=== PATIENT | male | born 1980 | race Hispanic/Latino ===

== ENCOUNTER 2020-04-28 05:28 | Emergency (ER) | payer OTHER ==
[2020-04-28] MEDS ORDERED: DiphenhydrAMINE HCL 50 MG/ML VIAL ONE (05:58)
[2020-04-28] MEDS ORDERED: METOCLOPRAMIDE 10 MG/2 ML VIAL ONE (05:58)
[2020-04-28] MEDS ORDERED: ONDANSETRON HCL 4 MG/2 ML VIAL ONE (05:58)
[2020-04-28 06:04] LABS: BASOPHILS % (AUTO) 0.4 % (0.0-5.0); EOSINOPHILS % (AUTO) 6.9 % (0.0-8.0); HEMATOCRIT 44.8 % (42-54); LYMPHOCYTES % (AUTO) 37.7 % (21.0-51.0); MEAN CORPUSCULAR HGB CONC 34.6 g/dL (32.0-36.0); MEAN CORPUSCULAR VOLUME 86.8 fL (79-99); MONOCYTES % (AUTO) 5.2 % (3.0-13.0); NEUTROPHILS % (AUTO) 49.6 % (40.0-77.0); PLATELET COUNT (AUTO) 177 K/uL (130-400); RED BLOOD CELL COUNT(AUTO) 5.16 MIL/uL (4.50-6.20); RED CELL DISTRIBUTION WIDTH 12.3 % (11.0-15.5); WHITE BLOOD COUNT (AUTO) 4.6 K/uL (4.8-10.8)
[2020-04-28 06:16] LABS: CREATININE 0.8 mg/dL (0.5-1.5); POTASSIUM 3.3 mmol/L (3.5-5.1)
[2020-04-28] MEDS ORDERED: MECLIZINE HCL 25 MG TABLET ONE (06:42)
== END 2020-04-28 07:57 | disposition home or self-care (01) ==
LOC: EDH 05:28
DX: E86.9 Volume depletion, unspecified (principal); H81.10 Benign paroxysmal vertigo, unspecified ear; Z87.891 Personal history of nicotine dependence
CPT/HCPCS: 36415; 80048; 85025; 96361; 96374; 96375; 99284; J1200; J2405; J2765